=== PATIENT | female | born 1945 | race Caucasian/White ===

== ENCOUNTER → 2017-01-18 | Outpatient (CLI) | payer OTHER | LOC: RAD 10:10 | DX: Z12.31 Encounter for screening mammogram for malignant neoplasm of breast (principal) ==

== ENCOUNTER 2017-06-05 05:17 | Emergency (ER) | payer OTHER ==
[~2017-06-05] VITALS: Ht 170.2 cm; Wt 65.3 kg
--- NOTE | ~2017-06-05 | EKG ---
[address] [address] ELECTROCARDIOGRAM REPORT Name: DELORIS FUNK Room #: DEP [facility]#: [id number] Admission: 06/05/17 Attend Phys: Discharge: 06/05/17 Date of : 49 Report #: [id number] THIS REPORT FOR: //name// [facility] ED Test Date: 2017-06-05 Test Time: 05:42:32 Pat Name: DELORIS FUNK Department: Room: Gender: F Agile Tester: [place] : 1945 Requested By: Elias Main Order Number: [id number] MD: Kash Del Rosario Measurements Intervals [place] Rate: 90 P: 46 MS: 126 QRS: 14 QRSD: 87 T: 48 QT: 364 QTc: 446 Interpretive Statements Sinus rhythm No previous ECG available for comparison Electronically Signed On 06-05-2017 23:01:29 [employer]IL[employer] by Kash Del Rosario [email or web address] <ELECTRONICALLY SIGNED> By: Kash Del Rosario MD 06/05/17 2301 0542 0542 Kash Del Rosario MD /D[place]
[2017-06-05] MEDS ORDERED: LIPITOR 10 MG10 M1 PO (05:35)
[2017-06-05 06:07] LABS: ABSOLUTE NEUTROPHILS 5.7 thou/uL (1.4-8.2); BASOPHILS 0.6 % (0.0-2.0); EOSINOPHILS 0.6 % (0.0-3.0); HEMOGLOBIN 13.9 gm/dL (12.0-15.0); LYMPHOCYTES 20.2 % (24.0-44.0); MCH 31.4 pg (26.0-34.0); MCHC 34.6 g/dL (28.0-37.0); MCV 90.7 fL (80.0-100.0); MONOCYTES 6.3 % (1.0-8.0); PLATELET COUNT 282 thou/uL (150-400); POLYS 72.3 % (36.0-66.0); RBC 4.41 mil/uL (4.20-5.00); WBC 7.9 thou/uL (4.0-11.0)
[2017-06-05 06:18] LABS: ANION GAP 11 mmol/L (7-16); BUN 22 mg/dL (7-18); CALCIUM 9.2 mg/dL (8.5-10.1); CHLORIDE 107 mmol/L (98-107); CO2 23 mmol/L (21-32); CREATININE 0.9 mg/dL (0.6-1.0); GLUCOSE 135 mg/dL (74-106); POTASSIUM 3.7 mmol/L (3.5-5.1); SODIUM 141 mmol/L (136-145)
[2017-06-05 06:20] LABS: APTT 25.5 Seconds (24.5-32.8); PROTIME 10.7 Seconds (9.3-11.4)
[2017-06-05 06:27] LABS: AMP/METHAMP Negative (Negative); BARBITURATES Negative (Negative); BENZODIAZEPINES POSITIVE (Negative); COCAINE Negative (Negative); METHADONE Negative (Negative); OPIATES Negative (Negative); PCP Negative (Negative)
[2017-06-05 06:29] LABS: ALBUMIN 3.5 g/dL (3.4-5.0); MAGNESIUM 1.9 mg/dL (1.8-2.4); SGOT 24 U/L (15-37); SGPT 41 U/L (30-65); TOTAL BILIRUBIN 0.6 mg/dL (<0.1-1.0); TOTAL PROTEIN 6.6 g/dL (6.4-8.2); TROPONIN-I < 0.04 ng/mL (<0.06)
== END 2017-06-05 08:28 | disposition home or self-care (01) ==
LOC: ER 05:17
PROVIDERS: Emergency Medicine
DX: F41.0 Panic disorder [episodic paroxysmal anxiety] (principal); F32.9 Major depressive disorder, single episode, unspecified; Z90.89 Acquired absence of other organs; Z88.5 Allergy status to narcotic agent; Z88.8 Allergy status to other drugs, medicaments and biological substances